=== PATIENT | female | born 1975 | race Two or more races ===

== ENCOUNTER 2024-12-11 09:19 | Outpatient (CLI) | payer OTHER | END 2024-12-11 09:28 | disposition home or self-care (01) | LOC: SONOGRAMA 09:19 | PROVIDERS: ATTEND Pathology Anatomic Pathology & Clinical Pathology | DX: D34 Benign neoplasm of thyroid gland (principal); E07.89 Other specified disorders of thyroid; C73 Malignant neoplasm of thyroid gland ==